=== PATIENT | female | born 1985 ===

== ENCOUNTER 2020-10-28 19:51 | Emergency (ER) | payer OTHER ==
[2020-10-28 21:03] LABS: Bilirubin Negative (Negative); Blood, Urine Negative (Negative); Clarity Clear (Clear); Glucose, Urine (Dipstick) Normal (Negative); Ketone, Urine Negative (Negative); Leukocyte 25 Leu/uL (Negative); Nitrite Negative (Negative); Protein, Urine (Dipstick) Negative (Neg-Trace); RBC/HPF 0-3 HPF (0-3); Specific Gravity, Urine 1.012 (1.002-1.036); Squamous Epithelial 0-3 HPF (0-3); Urobilinogen Normal mg/dL (Less than 2); WBC/HPF 0-3 HPF (0-3); pH, Urine 6.5 (5.0-9.0)
[2020-10-28 21:16] LABS: Bacteria/HPF Rare-Few HPF (None Seen)
[2020-10-28 21:19] LABS: #Eosinphils 0.3 thou/uL (0.0-0.7); #Lymphocytes 3.2 thou/uL (1.20-3.40); #Monocytes 0.8 thou/uL (0.11-0.59); #Neutrophils 8.7 thou/uL (1.40-6.50); %Basophils 0.3 % (0.0-1.0); %Eosinophils 2.2 % (0.0-10.0); %Lymphocytes 24.8 % (21.0-51.0); %Neutrophils 66.8 % (42.0-75.0); Hemoglobin 11.5 g/dL (12.0-16.0); Mean Corpuscular HGB CONC 32.4 g/dL (32.0-36.0); Mean Corpuscular Hemoglobin 27.8 pg (27.0-31.0); Mean Corpuscular Volume 85.7 fL (78.0-98.0); Mean Platelet Volume 7.2 fL (7.4-10.4); Platelet Count 366 thou/uL (130-400); RBC Distribution Width 11.9 % (11.5-14.5); Red Blood Cell (RBC) Count 4.14 mill/uL (4.20-5.40)
--- NOTE | 2020-10-29 07:41 | ULT ---
TRANSABDOMINAL PELVIC ULTRASOUND WITH DOPPLER: DATE: 10/28/2020. PROVIDED CLINICAL HISTORY: Pelvic cramping, vaginal spotting. FINDINGS: A single live intrauterine gestation is documented, with estimated gestational age by ultrasound 14 w eeks 6 days. heart rate of 153 b.p.m. is documented. The placenta is anteriorly located witho ut evidence for previa. There is a focal anteriorly convex appearance to the posterior aspect of the uterine myometrium in the lower uterine segment, which may reflect a Yaya-Paredes contraction or fi broid. Cervical length appears adequate. Amniotic fluid appears adequate. biometry: BPD 2.95 cm, 15 weeks 3 days Head circumference 11.0 cm, 15 weeks 2 days Abdominal circumference 8.47 cm, 14 weeks 5 days Femur length 1.41 cm, 14 weeks 1 day IMPRESSION: 1. Single live intrauterine gestation as described. 2. Yaya-Paredes contractions versus fibroid involving the lower uterine segment. POS: [place]
== END 2020-10-28 23:05 | disposition home or self-care (01) ==
LOC: ERS 19:51
DX: O20.9 Hemorrhage in early pregnancy, unspecified (principal); O99.332 Smoking (tobacco) complicating pregnancy, second trimester; F17.210 Nicotine dependence, cigarettes, uncomplicated; Z3A.15 15 weeks gestation of pregnancy
CPT/HCPCS: 36415; 76856; 81003; 81015; 84702; 85025; 86850; 86900; 86901; 87086; 93976